=== PATIENT | male | born 1950 | race Caucasian/White ===

== ENCOUNTER 2017-10-25 07:05 | Outpatient (CLI) | payer MEDICARE ==
--- NOTE | 2017-10-25 08:38 | ULT ---
ABDOMINAL ULTRASOUND: Date: 10-25-17 Comparison: None. History: Hyperlipidemia. FINDINGS: The imaged pancreas is unremarkable. The distal body and tail are obscured by bowel gas. The visualiz ed portions of the abdominal aorta and IVC appear within normal limits. The hepatic parenchyma is heterogeneous and echogenic, limiting assessment for focal lesion and bilia ry dilatation. These findings suggest hepatocellular disease, such as hepatic steatosis. No gallbladder wall thickening or pericholecystic fluid. No gallstones are seen. Gallbladder sludge noted. The CBD measures 4 mm, within normal limits. The right kidney measures 10.8 cm in craniocaudal dimension and demonstrates no stone, hydronephrosis or mass. Spleen measures up to 13.1 cm, upper limits of normal. Left kidney measures 10.4 cm in craniocaudal dimension and demonstrates no stone, hydronephrosis or m ass. IMPRESSION: 1. Increased echogencity of the hepatic parenchyma as described above. POS: JAYDEN
== END 2017-10-25 07:06 | disposition home or self-care (01) ==
LOC: ULT 07:05
PROVIDERS: ATTEND Nurse Practitioner Family
DX: E78.5 Hyperlipidemia, unspecified (principal); R74.8 Abnormal levels of other serum enzymes
CPT/HCPCS: 76700